=== PATIENT | male | born 1940 | race Caucasian/White ===

== ENCOUNTER 2020-04-11 09:50 | Outpatient (REF) | payer SELFPAY ==
[2020-04-11 10:44] LABS: Cholesterol 131 mg/dL
== END 2020-04-11 09:51 | disposition home or self-care (01) ==
LOC: HO.LNC 09:50
PROVIDERS: Visit Provider Pathology Anatomic Pathology & Clinical Pathology
DX: Z76.89 Persons encountering health services in other specified circumstances (principal)
CPT/HCPCS: 82465

== ENCOUNTER 2020-06-08 11:36 | Outpatient (REF) | payer SELFPAY ==
[2020-06-08 13:03] LABS: Cholesterol 150 mg/dL
== END 2020-06-08 11:37 | disposition home or self-care (01) ==
LOC: HO.LNC 11:36
PROVIDERS: Visit Provider Pathology Anatomic Pathology & Clinical Pathology
DX: Z13.89 Encounter for screening for other disorder (principal)
CPT/HCPCS: 36415; 82465

== ENCOUNTER 2020-10-23 07:19 | Emergency (ER) | payer MEDICARE, OTHER, SELFPAY ==
--- NOTE | ~2020-10-23 | XR_ITS ---
EXAMINATION: CR WRIST, RIGHT CLINICAL INFORMATION: Right wrist injury. COMPARISON: None TECHNIQUE: Four views of the right wrist. FINDINGS: No acute fracture or dislocation. Prominent dorsal soft tissue swelling about the wrist. 2 mm negative ulnar variance. Cystic changes and spurring of the distal radioulnar joint and the intercarpal joints and the first through third metacarpophalangeal joints. Severe degenerative change at triscaphe joint with near complete loss in joint space height, hypertrophic changes, cystic change and sclerosis seen. The triscaphe joint. No joint calcifications. Atherosclerotic calcifications noted in the soft tissues. XR/XR wrist RT 2V IMPRESSION: Prominent dorsal soft tissue swelling about the wrist. No acute fracture. Moderate degenerative changes in the wrist and severe degenerative change at the first triscaphe joint.
[2020-10-23 07:46] VITALS: BP 125/43; PULSE 70; RESP 18; O2SAT 97; BMI 24.6
--- NOTE | 2020-10-23 09:10 | ED_ITS ---
HPI - Extremity Problem General Chief complaint: Extremity Problem Stated complaint: R WRIST PAIN Time Seen by Provider: 10/23/20 09:04 Source: patient and family (spouse ) Mode of arrival: ambulatory History of Present Illness HPI Narrative: 79-year-old male presenting to the emergency department with right wrist pain since yesterday. He states he had an injury several years ago which resulted in a burn to his hand. Some Floxin he has been unable to move his wrist due to significant pain. He states he has a difficult time moving his fingers due to pain. He denies fevers, vomiting. He denies anticoagulant use. Patient is not a diabetic. Related Data Previous Rx's Medication Instructions Recorded acetaminophen [Tylenol] 650 mg PO Q6H PRN 7 Days #28 cap 10/23/20 prednisone 40 mg PO DAILY 5 Days #10 tab 10/23/20 Allergies Allergy/AdvReac Type Severity Reaction Status Date / Time No Known Allergies Allergy Verified 10/23/20 09:11 Review of Systems Constitutional: Constitutional: Denies fever(s) and Denies headache(s) Eyes: Eyes: Reports no additional eye complaints ENT: Denies headache(s) Cardiovascular: Cardiovascular: Denies chest pain and Denies dyspnea Respiratory: Respiratory: Denies dyspnea Gastrointestinal: Gastrointestinal: Denies abdominal pain and Denies vomiting Musculoskeletal: Comments: right wrist pain Neurologic: Reports system reviewed and no additional complaints, except as documented and Denies headache(s) Hematologic/Lymphatic: Hematologic/Lymphatic: Denies easy bleeding [facility] Social History Social History (Updated 10/23/20 @ 09:15 by DEON Ott) Household Members: Spouse Patient Tobacco Use Status: Never used Tobacco Advance Directives: Yes Advance Directives Information Provided: Yes Advance Directives on File: No Physical Exam Vital Signs: Vital Signs: Last Vital Signs Pulse 62 10/23/20 09:58 Resp 18 10/23/20 09:58 BP 107/44 L 10/23/20 09:58 Pulse Ox 97 10/23/20 09:58 Body Mass Index 24.6 Const: Other: sitting upright in the stretcher General: cooperative Orientation/consciousness: patient oriented x3 HENMT: Head: Yes atraumatic Eyes: Other: PERRL Neck: Neck: Yes full ROM, Yes trachea midline and Yes supple Resp: Effort & Inspection: normal respiratory effort and able to speak in complete sentences Cardio: Rate: regular rate GI: Inspection: No distended Back/Spine/Pelvis: Other: full ROM Skin: General skin exam: no rashes or lesions noted Neuro: General: patient oriented x3 Extrem: Other: RUE- a palpable radial pulse, able to range his digits, sensation intact limited flexion extension of the wrist, swelling to the proximal aspect of the dorsal of the hand, overlying tenderness, swelling noted diffusely to the hand and wrist, no open wounds, no lesions, compartment soft, full range of motion at the elbow and shoulder Course Course Course Narrative: His WBC count is normal. His CRP is elevated with a normal sed rate. I discussed case with attending who also evaluated the patient and recommended orthopedic evaluation. Reevaluation(s) Reevaluation #1: 10:43, orthopedics was paged 11:07 spoke with Elaine from orthopedics who will evaluate the pt. 12:39- orthoElaine at bedside 12:50, she has decided not to tap the joint, she thinks symptoms are due to gout with his elevated uric acid. She recommends giving him prednisone. I have given him the 1st dose in the ED. She recommends following up in the office for intra articular steroid injection should his symptoms not improve. She does not think this is related to a septic joint because his WBC count is normal. I will give the patient follow-up information. Patient feels comfortable with t his plan. MDM - Extremity (Nontraumatic) MDM Narrative Medical decision making narrative: 79-year-old male presenting to the emergency department with atraumatic right wrist pain since yesterday Vital stable, nontoxic appearing, hemodynamically stable X-ray obtained prior to my evaluation did not fracture. Will add on basic labs, inflammatory markers. Plan on a uric acid level to assess for gout. I am concerned with his limited range of motion that this could be an underlying septic joint. He has no evidence of tenosynovitis is he is able to range his digits. He has no open wounds. He does have a cystic structure to the dorsal aspect of his hand which she has had sinus areas nontender, lower suspicion for acute infection to the cystic structure. His compartments are soft. He is ot herwise neurovascularly intact. Lab Data Result diagrams: 10/23/20 09:21 10/23/20 09:21 Labs: Lab Results 10/23/20 10/23/20 10/23/20 Range/Units 09:21 09:21 09:21 WBC 9.8 (4.8-10.8) X10*3/uL RBC 4.38 L (4.60-5.80) X10*6/uL Hgb 12.0 L (14.0-18.0) g/dl Hct 37.3 L (42-52) % MCV 85.2 (80-98) fL MCH 27.4 (27.0-33.0) pg MCHC 32.2 (31.0-36.0) g/dl RDW 15.2 (11.0-16.0) % Plt Count 294 (160-400) X10*3/uL MPV 10.1 (9.4-12.4) fL Immature Gran % (Auto) 0.5 H (0.0-0.4) % Neut % (Auto) 77.6 H (45-73) % Lymph % (Auto) 10.6 L (20-40) % [place] % (Auto) 10.3 (2-11) % Eos % (Auto) 0.8 (0-4) % Baso % (Auto) 0.2 (0-2) % Lymph # (Auto) 1.0 L (1.2-4.9) X10*3/uL [place] # (Auto) 1.0 (0.1-1.2) X10*3/uL Eos # (Auto) 0.1 (0.0-0.4) X10*3/uL Baso # (Auto) 0.0 (0.0-0.2) X10*3/uL Abs Immat Gran (auto) 0.05 H (0.00-0.03) X10*3/uL Absolute Neuts (auto) 7.6 (2.0-8.3) X10*3/uL Absolute Nucleated RBC 0.000 (0.0-0.012) X10*3/uL Nucleated RBC % (auto) 0.0 (0.0-0.2) /100WBC ESR 14 (0-15) MM/HR Sodium 135 (135-145) mmol/L Potassium 4.4 (3.3-5.1) mmol/L Chloride 107 (96-108) mmol/L Carbon Dioxide 21 L (22-29) mmol/L Anion Gap 11 L (12-20) BUN 17 H (9-16) mg/dL Creatinine 0.85 (0.5-1.4) mg/dL Estim Creat Clear Calc 68.1 Estimated GFR > 60 Random Glucose 104 (60-115) mg/dL Uric Acid 7.3 H (3.4-7.0) mg/dL Calcium 8.8 (8.4-10.2) mg/dL C-Reactive Protein 2.51 H (< or = 0.50) mg/dL 10/23/ Range/Units 10:38 WBC (4.8-10.8) X10*3/uL RBC (4.60-5.80) X10*6/uL Hgb (14.0-18.0) g/dl Hct (42-52) % MCV (80-98) fL MCH (27.0-33.0) pg MCHC (31.0-36.0) g/dl RDW (11.0-16.0) % Plt Count (160-400) X10*3/uL MPV (9.4-12.4) fL Immature Gran % (Auto) (0.0-0.4) % Neut % (Auto) (45-73) % Lymph % (Auto) (20-40) % [place] % (Auto) (2-11) % Eos % (Auto) (0-4) % Baso % (Auto) (0-2) % Lymph # (Auto) (1.2-4.9) X10*3/uL [place] # (Auto) (0.1-1.2) X10*3/uL Eos # (Auto) (0.0-0.4) X10*3/uL Baso # (Auto) (0.0-0.2) X10*3/uL Abs Immat Gran (auto) (0.00-0.03) X10*3/uL Absolute Neuts (auto) (2.0-8.3) X10*3/uL Absolute Nucleated RBC (0.0-0.012) X10*3/uL Nucleated RBC % (auto) (0.0-0.2) /100WBC ESR (0-15) MM/HR Sodium (135-145) mmol/L Potassium (3.3-5.1) mmol/L Chloride (96-108) mmol/L Carbon Dioxide (22-29) mmol/L Anion Gap (12-20) BUN (9-16) mg/dL Creatinine (0.5-1.4) mg/dL Estim Creat Clear Calc Estimated GFR Random Glucose (60-115) mg/dL Uric Acid Cancelled (3.4-7.0) mg/dL Calcium (8.4-10.2) mg/dL C-Reactive Protein (< or = 0.50) mg/dL Discharge Plan Discharge Clinical Impression: Acute wrist pain Patient Disposition: Home, Self-Care Instructions: Gout (ED) Additional Instructions: Please call the orthopedic doctor for follow-up this week. You are evaluated by the orthopedic advanced practitioner who felt your symptoms are related to gout. Please return to emergency department for symptoms worsen, worsening swelling, redness, difficulty moving her fingers, increased pain to her wrist, fevers, vomiting, or any other concerning symptoms. Please elevate your wrist and hand to help with the swelling. you may place ice packs to help with the swelling as well. Take Tylenol as prescribed for pain. Use steroids as prescribed help with inflammation. Prescriptions: New acetaminophen [Tylenol] 325 mg capsule 650 mg PO Q6H PRN (Reason: pain) 7 Days Qty: 28 RF: 0 prednisone 20 mg tablet 40 mg PO DAILY 5 Days Qty: 10 RF: 0 Referrals: Chris Owen MD [Physician] - 2 days (call for orthopedic follow up if symptoms are not improving )
[2020-10-23] MEDS: Acetaminophen 325 MG TABLET 650 MG PO (09:25)
[2020-10-23 09:28] LABS: MANUAL DIFF FLAG NO
[2020-10-23 09:29] LABS: Basophils Percent Auto 0.2 % (0-2); Eosinophils Absolute Auto 0.1 X10*3/uL (0.0-0.4); Eosinophils Percent Auto 0.8 % (0-4); Hematocrit 37.3 % (42-52); Imm Gran Abs Auto 0.05 X10*3/uL (0.00-0.03); Imm Gran Pct Auto 0.5 % (0.0-0.4); Lymphocytes Percent Auto 10.6 % (20-40); Mean Corpuscular HGB Conc 32.2 g/dl (31.0-36.0); Mean Corpuscular Hemoglobin 27.4 pg (27.0-33.0); Mean Corpuscular Volume 85.2 fL (80-98); Mean Platelet Volume 10.1 fL (9.4-12.4); Monocytes Percent Auto 10.3 % (2-11); Neutrophils Absolute Auto 7.6 X10*3/uL (2.0-8.3); Neutrophils Percent Auto 77.6 % (45-73); Platelet Count 294 X10*3/uL (160-400); Red Blood Count 4.38 X10*6/uL (4.60-5.80); Red Cell Distribution Width 15.2 % (11.0-16.0); White Blood Count 9.8 X10*3/uL (4.8-10.8)
[2020-10-23 09:55] LABS: Anion Gap 11 (12-20); Blood Urea Nitrogen 17 mg/dL (9-16); C Reactive Protein 2.51 mg/dL (< or = 0.50); Calcium 8.8 mg/dL (8.4-10.2); Carbon Dioxide 21 mmol/L (22-29); Chloride 107 mmol/L (96-108); Creatinine Clr Calc Pharmacy 68.1; Estimated Glomerular Filt Rate > 60; Glucose Random 104 mg/dL (60-115); Potassium 4.4 mmol/L (3.3-5.1); Sodium 135 mmol/L (135-145)
[2020-10-23 09:58] VITALS: BP 107/44; PULSE 62; RESP 18; O2SAT 97
[2020-10-23 10:33] LABS: Erythrocyte Sedimentation Rate 14 MM/HR (0-15)
[2020-10-23 10:51] LABS: Uric Acid 7.3 mg/dL (3.4-7.0)
[2020-10-23] MEDS: predniSONE 20 MG TABLET 60 MG PO (11:56)
== END 2020-10-23 13:20 | disposition home or self-care (01) ==
PROVIDERS: Physician Assistant Medical; Emergency Provider Emergency Medicine Emergency Medical Services; PCP Internal Medicine
DX: M25.531 Pain in right wrist (principal); R22.31 Localized swelling, mass and lump, right upper limb
CPT/HCPCS: 36415; 73100; 80048; 84550; 85025; 85652; 86140; 99283; 99284

== ENCOUNTER 2024-11-09 07:00 | Day surgery (SDC) | payer MEDICARE, SELFPAY ==
[2024-11-04 08:36] VITALS: BMI 30.8
[2024-11-05 08:24] VITALS: BMI 30.8
--- NOTE | 2024-11-06 10:45 | HO.ANESPROP2 ---
Documented by User: Ana Condon NP 11/06/24 10:48 HPI - Anesthesia Eval Consult details Narrative: 83yo M for Left Cataract Extraction IOL Insertion No previous catarct on record s/p TAVR 2020 PENDING SALE TO [facility] Past Medical History Medical History (Updated 11/05/24 @ 08:10 by Charlette Oliver RN) Arthritis Hx of radiation therapy Habitual snoring History of transcatheter aortic valve replacement (TAVR) Umbilical hernia without mention of obstruction or gangrene Trochanteric bursitis Proctitis, radiation Onychomycosis Obese Macular degeneration IFG (impaired fasting glucose) History of prostate cancer Ganglion cyst HTN (hypertension) Prophylactic antibiotic Aortic stenosis Allergic rhinitis Gout Surgical History Surgical History (Updated 11/04/24 @ 08:34 by Charlette Oliver RN) Hx of rotator cuff surgery Hx of foot surgery History of esophagogastroduodenoscopy (EGD) Hx of cardiac catheterization H/O colonoscopy Hx of total knee replacement Social History Social History (Updated 10/23/20 @ 09:15 by DEON Ott) Household Members: Spouse Are you a primary tire care manager to a significant other at home: No Do you presently have visiting nurse or other home services: No Patient Tobacco Use Status: Never used Tobacco Use of substances other than those prescribed or required for medical reasons: No Have you been hit, kicked, punched, or otherwise hurt by someone within the past year? If so, by whom?: No Are you DNR?: No Advance Directives: No Advance Directives Information Provided: Yes Advance Directives on File: No Poor oral hygiene: Yes Meds Allergies Allergy/AdvReac Type Severity Reaction Status Date / Time No Known Allergies Allergy Verified 10/23/20 09:11 Home Medications ?Medication ?Instructions ?Recorded ?Confirmed ?Last Taken ?Type amlodipine 5 mg-benazepril 20 mg 1 cap PO DAILY 11/04/24 11/04/24 Unknown History capsule pravastatin 20 mg tablet 20 mg PO BEDTIME 11/04/24 11/04/24 Unknown History Exam Height,Weight and Vital Signs: Height 5 ft 6.93 in Weight 88.9 kg Narrative Narrative: ECHO 2023 Summary 1. There is basal septal thickening with a sigmoid septum configuration and otherwise normal left ventricular wall thickness. The left ventricle is otherwise poorly visualized in the apical long-axis windows due to acoustic shadowing and off-axis imaging (causing foreshortening). Left ventricular size and function appear grossly normal, with a visually estimated left ventricular ejection fraction of 60-65 %. Poor endocardial border definition precludes evaluation for regional wall motion abnormalities. Abnormal mitral annular TDI velocities suggest impaired LV relaxation. 2. The right ventricle is suboptimally visualized but appears normal in size and function. 3. The atria are normal in size. 4. The patient is status post implantation of a 29 mm S3 TAVR bioprosthesis on 11/30/2020. The prosthetic valve appears well seated and functioning normally. The leaflets are not well visualized. The peak and mean gradients are 15 and 8 mmHg, respectively. There is a trivial anterior paravalvular leak. 5. The inferior vena cava is poorly visualized. 6. Prominent epicardial adipose tissue. There is no significant pericardial effusion. 7. The ascending aorta and aortic root are normal in size. Assessment and Plan Assessment Anesthesia Assessment: Chart Reviewed Documented by User: Alexandria Wilson MD 11/09/24 08:05 PENDING SALE TO [facility] Past Medical History Medical History (Updated 11/05/24 @ 08:10 by Charlette Oliver, MONALISA) Arthritis Hx of radiation therapy Habitual snoring History of transcatheter aortic valve replacement (TAVR) Umbilical hernia without mention of obstruction or gangrene Trochanteric bursitis Proctitis, radiation Onychomycosis Obese Macular degeneration IFG (impaired fasting glucose) History of prostate cancer Ganglion cyst HTN (hypertension) Prophylactic antibiotic Aortic stenosis Allergic rhinitis Gout Family History Family history of problems with anesthesia: No Surgical History Surgical History (Updated 11/04/24 @ 08:34 by Charlette Oliver RN) Hx of rotator cuff surgery Hx of foot surgery History of esophagogastroduodenoscopy (EGD) Hx of cardiac catheterization H/O colonoscopy Hx of total knee replacement History of Problems with Anesthesia: No Social History Social History (Updated 10/23/20 @ 09:15 by DEON Ott) Household Members: Spouse Are you a primary tire care manager to a significant other at home: No Do you presently have visiting nurse or other home services: No Patient Tobacco Use Status: Never used Tobacco Use of substances other than those prescribed or required for medical reasons: No Have you been hit, kicked, punched, or otherwise hurt by someone within the past year? If so, by whom?: No Are you DNR?: No Advance Directives: No Advance Directives Information Provided: Yes Advance Directives on File: No Poor oral hygiene: Yes Meds Allergies Allergy/AdvReac Type Severity Reaction Status Date / Time No Known Allergies Allergy Verified 10/23/20 09:11 Home Medications ?Medication ?Instructions ?Recorded ?Confirmed ?Last Taken ?Type amlodipine 5 mg-benazepril 20 mg 1 cap PO DAILY 11/04/24 11/04/24 Unknown History capsule pravastatin 20 mg tablet 20 mg PO BEDTIME 11/04/24 11/04/24 Unknown History Exam Airway Mallampati Class: II TM Dist: >3cm Neck ROM: Full Denture: Upper Heart: rrr Lungs: cta Assessment and Plan Assessment Anesthesia Assessment: Anesthesia Plan Discussed Final Anesthetic Review Family History of Problems with Anesthesia: No History of Problems with Anesthesia: No NPO: Yes ASA Class: III Final Preanesthetic Review: No Changes in Pt Med Stat, Meds/Allgs Chart Reviewed and Consent Obtained/Reviewed Patient Risk: Low Procedure Risk: Low Anesthetic Plan Anesthetic Plan: MAC: Disposition: Standard PACU
[2024-11-09 07:33] VITALS: BP 170/61; PULSE 56; RESP 18; TEMP 36.9; O2SAT 97
[2024-11-09] MEDS: Lactated Ringers 500 ML 50 ML IV (07:49)
[2024-11-09] MEDS: Tetracaine HCl/PF 0.5% Oph Sol 4 ML DROPS 1 DROP EYE-LEFT (07:49)
[2024-11-09] MEDS: Tropicamide 1 % Ophth Sol 3 ML BTL 1 DROP EYE-LEFT ×3 (07:50→07:51)
[2024-11-09] MEDS: Cyclopentolate 1 % Ophth Sol 2 ML DRPBTL 1 DROP EYE-LEFT ×3 (07:50→07:51)
[2024-11-09] MEDS: Phenylephrine HCL 2.5% Oph SoL 2 ML BOTTLE 1 DROP EYE-LEFT ×3 (07:50→07:51)
[2024-11-09] MEDS: Ketorolac Tromethamine 0.5% Op 5 ML DROPS 1 DROP EYE-LEFT ×3 (07:50→07:51)
--- NOTE | 2024-11-09 08:42 | MHC.SHP ---
Pre-Procedural Eval Section A - 24 Hr Update-Section A only Date of Service: 11/09/24 The patient is an INPATIENT: No Changes since office visit: No Cold of Flu in the past 2 weeks, No New Medical Problems, No Changes in Medication and No Patient answered all questions The patient has been examined within 24 hours of the surgical procedure. The History & Physical has been completed within 30 days and I have reviewed it.: Yes Section B - Complete if H&P > 30 days Chief Complaint: Age-related nuclear cataract, left eye Allergies: Allergies Allergy/AdvReac Type Severity Reaction Status Date / Time No Known Allergies Allergy Verified 10/23/20 09:11 Plan Diagnosis/Plan: Unchanged I have reviewed the history and physical and performed a pertinent physical examination on my patient. No changes have occurred unless specified. Time Spent With Patient Time: Total time managing care of this patient today ____ minutes.
--- NOTE | 2024-11-09 08:43 | HO.PNOPHT ---
Ophthalmology Procedure Procedure Date of Service: 11/09/24 Ophthalmology Viscoelastic: Healon Duet Dual Pack Pro Ophthalmology Lenses: IOL Acrysof MP - MA60AC (17.5) Procedure Notes: PREOPERATIVE DIAGNOSIS: Decreased visual acuity left eye secondary to cataract POSTOPERATIVE DIAGNOSIS: Same PROCEDURE: Left cataract extraction with intraocular lens insertion SURGEON: Jeff Jerome M.D. ANESTHESIA: Topical/MAC ESTIMATED BLOOD LOSS: None COMPLICATIONS: None After obtaining informed consent, the patient was brought to the operation room suite and placed in the supine position. After adequate sedation per anesthesia, topical drops of Tetracaine were given to the left eye. The eye was then prepped and draped in the usual sterile fashion. The operating room microscope was then positioned over the operative eye and a lid speculum placed. A paracentesis was created. Viscoelastic was then instilled into the anterior chamber. A three plane incision was then created temporally, utilizing a 2.85 mm keratome. Capsulotomy forceps were then utilized to create a circular tear capsulotomy. Hydrodissection and hydrodelineation were carried out until adequate mobilization of the nucleus occurred. Phacoemulsification was then utilized to remove the dense central nucleus followed by removal of the cortical material utilizing the automated aspiration irrigation unit. Viscoat elastic was instilled into the posterior capsular bag followed by placement of a posterior chamber intraocular lens without difficulty. The residual Viscoat elastic was then removed utilizing the automated IA machine. The wound was check and found to be watertight. The patient tolerated the procedure well and the lid speculum was removed. Intracameral injection of Vigamox 0.1 mL followed by a subtenon injection of Kenalog-40 0.2 mL were administered. The patient will be seen in the a.m.
[2024-11-09 09:06] VITALS: BP 156/67; PULSE 55; RESP 16; TEMP 36.6; O2SAT 98
== END 2024-11-09 09:09 | disposition home or self-care (01) ==
PROVIDERS: PCP Internal Medicine; Visit Provider Ophthalmology
PROC: (CPT 66985; principal; 2024-11-09 09:00)
DX: H25.12 Age-related nuclear cataract, left eye (principal); H54.7 Unspecified visual loss; H34.8122 Central retinal vein occlusion, left eye, stable; H35.00 Unspecified background retinopathy; H11.153 Pinguecula, bilateral; H43.393 Other vitreous opacities, bilateral; I10 Essential (primary) hypertension; I35.8 Other nonrheumatic aortic valve disorders; E78.00 Pure hypercholesterolemia, unspecified; M10.9 Gout, unspecified; Z79.51 Long term (current) use of inhaled steroids; Z79.899 Other long term (current) drug therapy; Z96.653 Presence of artificial knee joint, bilateral; Z87.891 Personal history of nicotine dependence
CPT/HCPCS: 66984; J2250; J3301; V2630

== ENCOUNTER 2024-11-23 07:09 | Day surgery (SDC) | payer MEDICARE, SELFPAY ==
[2024-11-04 08:46] VITALS: BMI 30.8
[2024-11-05 08:27] VITALS: BMI 30.8
--- NOTE | 2024-11-19 14:41 | HO.ANESPROP2 ---
Documented by User: Ana Condon NP 11/19/24 14:42 HPI - Anesthesia Eval Consult details Narrative: 84yo M for Right Cataract Extraction IOL Insertion Left eye 11/09/24: No meds s/p TAVR 2020 [facility] Past Medical History Medical History Arthritis Hx of radiation therapy Habitual snoring History of transcatheter aortic valve replacement (TAVR) Umbilical hernia without mention of obstruction or gangrene Trochanteric bursitis Proctitis, radiation Onychomycosis Obese Macular degeneration IFG (impaired fasting glucose) History of prostate cancer Ganglion cyst HTN (hypertension) Prophylactic antibiotic Aortic stenosis Allergic rhinitis Gout Family History Family history of problems with anesthesia: No Surgical History Surgical History Hx of rotator cuff surgery Hx of foot surgery History of esophagogastroduodenoscopy (EGD) Hx of cardiac catheterization H/O colonoscopy Hx of total knee replacement History of Problems with Anesthesia: No Social History Social History Household Members: Spouse Are you a primary pulmonary care nurse to a significant other at home: No Do you presently have visiting nurse or other home services: No Patient Tobacco Use Status: Never used Tobacco Use of substances other than those prescribed or required for medical reasons: No Have you been hit, kicked, punched, or otherwise hurt by someone within the past year? If so, by whom?: No Are you DNR?: No Advance Directives: No Advance Directives Information Provided: Yes Advance Directives on File: No Poor oral hygiene: Yes Meds Allergies Allergy/AdvReac Type Severity Reaction Status Date / Time No Known Allergies Allergy Verified 10/23/20 09:11 Home Medications ?Medication ?Instructions ?Recorded ?Confirmed ?Last Taken ?Type amlodipine 5 mg-benazepril 20 mg 1 cap PO DAILY 11/04/24 11/04/24 Unknown History capsule pravastatin 20 mg tablet 20 mg PO BEDTIME 11/04/24 11/04/24 Unknown History Exam Height,Weight and Vital Signs: Height 5 ft 6.93 in Weight 88.9 kg Narrative Narrative: ECHO 2023 Summary 1. There is basal septal thickening with a sigmoid septum configuration and otherwise normal left ventricular wall thickness. The left ventricle is otherwise poorly visualized in the apical long-axis windows due to acoustic shadowing and off-axis imaging (causing foreshortening). Left ventricular size and function appear grossly normal, with a visually estimated left ventricular ejection fraction of 60-65 %. Poor endocardial border definition precludes evaluation for regional wall motion abnormalities. Abnormal mitral annular TDI velocities suggest impaired LV relaxation. 2. The right ventricle is suboptimally visualized but appears normal in size and function. 3. The atria are normal in size. 4. The patient is status post implantation of a 29 mm S3 TAVR bioprosthesis on 11/30/2020. The prosthetic valve appears well seated and functioning normally. The leaflets are not well visualized. The peak and mean gradients are 15 and 8 mmHg, respectively. There is a trivial anterior paravalvular leak. 5. The inferior vena cava is poorly visualized. 6. Prominent epicardial adipose tissue. There is no significant pericardial effusion. 7. The ascending aorta and aortic root are normal in size. Assessment and Plan Assessment Anesthesia Assessment: Chart Reviewed Final Anesthetic Review Family History of Problems with Anesthesia: No History of Problems with Anesthesia: No Documented by User: Kenzie Perera MD 11/23/24 07:47 PMFSH Past Medical History Medical History Arthritis Hx of radiation therapy Habitual snoring History of transcatheter aortic valve replacement (TAVR) Umbilical hernia without mention of obstruction or gangrene Trochanteric bursitis Proctitis, radiation Onychomycosis Obese Macular degeneration IFG (impaired fasting glucose) History of prostate cancer Ganglion cyst HTN (hypertension) Prophylactic antibiotic Aortic stenosis Allergic rhinitis Gout Surgical History Surgical History Hx of rotator cuff surgery Hx of foot surgery History of esophagogastroduodenoscopy (EGD) Hx of cardiac catheterization H/O colonoscopy Hx of total knee replacement Social History Social History Household Members: Spouse Are you a primary pulmonary care nurse to a significant other at home: No Do you presently have visiting nurse or other home services: No Patient Tobacco Use Status: Never used Tobacco Use of substances other than those prescribed or required for medical reasons: No Have you been hit, kicked, punched, or otherwise hurt by someone within the past year? If so, by whom?: No Are you DNR?: No Advance Directives: No Advance Directives Information Provided: Yes Advance Directives on File: No Poor oral hygiene: Yes Meds Allergies Allergy/AdvReac Type Severity Reaction Status Date / Time No Known Allergies Allergy Verified 10/23/20 09:11 Home Medications ?Medication ?Instructions ?Recorded ?Confirmed ?Last Taken ?Type amlodipine 5 mg-benazepril 20 mg 1 cap PO DAILY 11/04/24 11/04/24 Unknown History capsule pravastatin 20 mg tablet 20 mg PO BEDTIME 11/04/24 11/04/24 Unknown History Exam Airway Mallampati Class: II TM Dist: >3cm Neck ROM: Limited Heart: rrr Lungs: cta Assessment and Plan Assessment Anesthesia Assessment: Anesthesia Plan Discussed Final Anesthetic Review NPO: Yes ASA Class: III Final Preanesthetic Review: No Changes in Pt Med Stat, Meds/Allgs Chart Reviewed, Consent Obtained/Reviewed and Anes Risks/Benef Reviewed Patient Risk: Intermediate Procedure Risk: Low Anesthetic Plan Anesthetic Plan: MAC: Disposition: Standard PACU
[2024-11-23] MEDS: Lactated Ringers 500 ML 50 ML IV (08:15)
[2024-11-23] MEDS: Tropicamide 1 % Ophth Sol 3 ML BTL 1 DROP EYE-RIGHT ×3 (08:16→08:30)
[2024-11-23] MEDS: Phenylephrine HCL 2.5% Oph SoL 2 ML BOTTLE 1 DROP EYE-RIGHT ×3 (08:16→08:30)
[2024-11-23] MEDS: Tetracaine HCl/PF 0.5% Oph Sol 4 ML DROPS 1 DROP EYE-RIGHT (08:16)
[2024-11-23] MEDS: Ketorolac Tromethamine 0.5% Op 5 ML DROPS 1 DROP EYE-RIGHT ×3 (08:16→08:30)
[2024-11-23] MEDS: Cyclopentolate 1 % Ophth Sol 2 ML DRPBTL 1 DROP EYE-RIGHT ×3 (08:16→08:30)
[2024-11-23 08:35] VITALS: BP 166/57; PULSE 54; RESP 18; TEMP 36.7; O2SAT 96
--- NOTE | 2024-11-23 09:14 | MHC.SHP ---
Pre-Procedural Eval Section A - 24 Hr Update-Section A only Date of Service: 11/23/24 The patient is an INPATIENT: No Changes since office visit: No Cold of Flu in the past 2 weeks, No New Medical Problems, No Changes in Medication and No Patient answered all questions The patient has been examined within 24 hours of the surgical procedure. The History & Physical has been completed within 30 days and I have reviewed it.: Yes Section B - Complete if H&P > 30 days Chief Complaint: Age-related nuclear cataract, right eye Allergies: Allergies Allergy/AdvReac Type Severity Reaction Status Date / Time No Known Allergies Allergy Verified 11/23/24 08:38 Plan Diagnosis/Plan: Unchanged I have reviewed the history and physical and performed a pertinent physical examination on my patient. No changes have occurred unless specified. Time Spent With Patient Time: Total time managing care of this patient today ____ minutes.
--- NOTE | 2024-11-23 09:15 | HO.PNOPHT ---
Ophthalmology Procedure Procedure Date of Service: 11/23/24 Ophthalmology Viscoelastic: Healon Duet Dual Pack Pro Ophthalmology Lenses: IOL Acrysof MP - [id number] (17.5) Procedure Notes: PREOPERATIVE DIAGNOSIS: Decreased visual acuity right eye secondary to cataract POSTOPERATIVE DIAGNOSIS: Same PROCEDURE: Right cataract extraction with intraocular lens insertion SURGEON: Jeff Jerome M.D. ANESTHESIA: Topical ESTIMATED BLOOD LOSS: None COMPLICATIONS: None After obtaining informed consent, the patient was brought to the operating room suite and placed in the supine position. After adequate sedation per anesthesia, topical drops of Tetracaine were given to the right eye. The eye was then prepped and draped in the usual sterile fashion. The operating room microscope was then positioned over the operative eye and a lid speculum placed. A paracentesis was created. MPF Lidocaine 0.5 mf was instilled intracameral followed by Viscoelastic was then instilled into the anterior chamber. A three plane incision was then created temporally, utilizing a 2.85 mm keratome. Capsulotomy forceps were then utilized to create a circular tear capsulotomy. Hydrodissection and hydrodelineation were carried out until adequate mobilization of the nucleus occurred. Phacoemulsification was then utilized to remove the dense central nucleus followed by removal of the cortical material utilizing the automated aspiration irrigation unit. Viscoelastic was instilled into the posterior capsular bag followed by placement of a posterior chamber intraocular lens without difficulty. The residual Viscoelastic was then removed utilizing the automated IA machine. The wound was checked and found to be watertight. The patient tolerated the procedure well and the lid speculum was removed. Intracameral injection of Vigamox 0.1 mL followed by a subtenon injection of Kenalog-40 0.2 mL were administered. The patient will be seen in the a.m.
[2024-11-23 09:45] VITALS: BP 172/64; PULSE 53; RESP 18; TEMP 36.3; O2SAT 98
== END 2024-11-23 10:00 | disposition home or self-care (01) ==
PROVIDERS: PCP Internal Medicine; Visit Provider Ophthalmology
PROC: (CPT 66985; principal; 2024-11-23 09:30)
DX: H25.11 Age-related nuclear cataract, right eye (principal); H54.7 Unspecified visual loss; H31.091 Other chorioretinal scars, right eye; H43.393 Other vitreous opacities, bilateral; H35.00 Unspecified background retinopathy; H11.153 Pinguecula, bilateral; I10 Essential (primary) hypertension; E78.00 Pure hypercholesterolemia, unspecified; R73.01 Impaired fasting glucose; Z85.46 Personal history of malignant neoplasm of prostate; Z92.3 Personal history of irradiation; Z79.51 Long term (current) use of inhaled steroids; Z79.899 Other long term (current) drug therapy; Z96.653 Presence of artificial knee joint, bilateral; Z87.891 Personal history of nicotine dependence
CPT/HCPCS: 66984; J2003; J3301; V2630